=== PATIENT | female | born 1985 | race Hispanic/Latino ===

== ENCOUNTER 2016-11-06 12:19 | Emergency (ER) | payer BC ==
--- NOTE | 2016-11-06 13:22 | ED PDOC ---
HPI: Eye Injury/Pain Time Seen by Provider: 11/06/16 13:03 Chief Complaint (Nursing): Eye Problem Chief Complaint (Provider): right eye strain History Per: Patient History/Exam Limitations: no limitations Additional Complaint(s): 31yo F in ?ED for eval of right eye concern states yesterday after working on computer noted blurry vision lasting 1-2 months to right eye. denies vision loss , sharp pain drainage from eye, LOCKETT, double vision PT states she has a FB sensastion to ey-no known injury, no contact wearing. Past Medical History Reviewed: Historical Data, Nursing Documentation, Vital Signs Vital Signs: Last Vital Signs Temp 98.2 F 11/06/16 12:27 Pulse 75 11/06/16 12:27 Resp 16 11/06/16 12:27 BP 135/78 11/06/16 12:27 Pulse Ox 99 11/06/16 12:27 - Medical History PMH: No Chronic Diseases - Family History Family History: States: No Known Family Hx - Home Medications Home Medications: Ambulatory Orders Medication Instructions Recorded Polymyxin/Trimethoprim Sulfate 100 drop OD BID #1 bottle 11/06/16 [Polytrim Ophth Soln] - Allergies Allergies/Adverse Reactions: Allergies Allergy/AdvReac Type Severity Reaction Status Date / Time No Known Allergies Allergy Verified 11/06/16 12:27 Review of Systems ROS Statement: Except As Marked, All Systems Reviewed And Found Negative Eyes: Positive for: Vision Change Physical Exam - Reviewed Nursing Documentation Reviewed: Yes Vital Signs Reviewed: Yes - Physical Exam Appears: Positive for: Well, Non-toxic, No Acute Distress Head Exam: Positive for: ATRAUMATIC, NORMAL INSPECTION, NORMOCEPHALIC Skin: Positive for: Normal Color, Warm, DRY Eye Exam: Positive for: Normal appearance, EOMI, PERRL, Other (lid inversion: NAD. floursciene test: negative for uptake. no hyphema no hemmorrage. fundoscopic exam: normal ). Negative for: Nystagmus, Periorbital swelling, Periorbital tenderness, Conjunctival injection, Scleral icterus Neurologic/Psych: Positive for: Alert, verification specialist II-XII (intact), Oriented, Gait ( stable). Negative for: Cerebellar Tests - ECG O2 Sat by Pulse Oximetry: 99 Medical Decision Making Medical Decision Making: pt with normal eye exam. advised pt to have ophthalmology f.u for further eval of retina and glaucoma testing. likely causes are fatigue or new onset migraine. pt will be given polytrim eye drops and to return to ER if with neuro deficts. Disposition - Clinical Impression Clinical Impression: Eye strain, Blurry vision - Patient ED Disposition Is Patient to be Admitted: No Counseled Patient/Family Regarding: Studies Performed, Diagnosis, Need For Followup, Rx Given - Disposition Referrals: Antwan Salas MD [Staff Provider] - Disposition: Routine/Home Disposition Time: 13:24 Condition: STABLE Prescriptions: Polymyxin/Trimethoprim Sulfate [Polytrim Ophth Soln] 100 drop OD BID #1 bottle Instructions: Blurred Vision (ED) Forms: [employer] (Kiswahili)
[2016-11-06 13:37] VITALS: BP 126/78; PULSE 78; RESP 18; TEMP 97.7; O2SAT 98
== END 2016-11-06 13:37 | disposition home or self-care (01) ==
LOC: H.ER 12:19
DX: H53.8 Other visual disturbances (principal); H53.10 Unspecified subjective visual disturbances